=== PATIENT | male | born 1975 | race Caucasian/White ===

== ENCOUNTER 2017-09-12 17:27 | Emergency (ER) | payer OTHER ==
[2017-09-12] MEDS ORDERED: Octyl 2-Cyanoacrylate 1 Tube TOP ONE (17:59)
[2017-09-12] MEDS ORDERED: Diphtheria,Pertussis(Acell),Tetanus Vaccine 0.5 ML Syringe IM ONE (18:05)
--- NOTE | 2017-09-12 18:10 | EDM.PDOC ---
ED HPI GENERAL MEDICAL PROBLEM - General Chief Complaint: Upper Extremity Injury/Pain Stated Complaint: NEEDS STITCHES LT ARM Time Seen by Provider: 09/12/17 17:50 Source of Information: Reports: Patient History Limitations: Reports: No Limitations - History of Present Illness INITIAL COMMENTS - FREE TEXT/NARRATIVE: History of present illness: [41-year-old male comes in complaining of a laceration to the inside of the left bicep. 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 There is a superficial 1 cm laceration that does cut the dermis but does not penetrate the blood layer.] Review of systems: As per history of present illness and below otherwise all systems reviewed and negative. Past medical history: As per history of present illness and as reviewed below otherwise noncontributory. Surgical history: As per history of present illness and as reviewed below otherwise noncontributory. Social history: No reported history of drug or alcohol abuse. Family history: As per history of present illness and as reviewed below otherwise noncontributory. Physical exam: HEENT: Atraumatic, normocephalic, pupils reactive, negative for conjunctival pallor or scleral icterus, mucous membranes moist, throat clear, neck supple, nontender, trachea midline. Lungs: Clear to auscultation, breath sounds equal bilaterally, chest nontender. Heart: S1S2, regular, negative for clicks, rubs, or JVD. Abdomen: Soft, nondistended, nontender. Negative for masses or hepatosplenomegaly. Negative for costovertebral tenderness. Pelvis: Stable nontender. Genitourinary: Deferred. Rectal: Deferred. Extremities: 1 cm laceration to inner aspect of left bicep negative for cords or calf pain. Neurovascular unremarkable. Neuro: Awake, alert, oriented. Cranial nerves II through XII unremarkable. Cerebellum unremarkable. Motor and sensory unremarkable throughout. Exam nonfocal. Edges well approximated with Steri-Strips and then sealed with Dermabond Antibiotics prescribed / tetanus given Diagnostics: [] Therapeutics: [Tetanus] Impression: [1 cm laceration] Plan: [Follow-up with primary care] Definitive disposition and diagnosis as appropriate pending reevaluation and review of above. Left Upper Arm Pain Score (Numeric/FACES): 4 - Related Data Allergies Allergy/AdvReac Type Severity Reaction Status Date / Time No Known Allergies Allergy Verified 09/12/17 17:55 Home Meds: Home Meds Cephalexin [Keflex] 500 mg PO QID #40 capsule 09/12/17 [Rx] Past Medical History - Past Health History Medical/Surgical History: Denies Medical/Surgical History Social & Family History - Tobacco Use Smoking Status *Q: Current Every Day Smoker Years of Tobacco use: 10 Packs/Tins Daily: 0.5 - Caffeine Use Caffeine Use: Reports: Coffee, Energy Drinks, Tea - Recreational Drug Use Recreational Drug Use: No Review of Systems - Review of Systems Review Of Systems: See Below (See history of present illness) ED EXAM, GENERAL - Physical Exam Exam: See Below (See history of present illness) Course - Orders/Labs/Meds Meds: Medications Discontinued Medications Generic Name Dose Route Start Last Admin Trade Name Freq PRN Reason Stop Dose Admin Octyl Cyanoacrylate 1 applic 09/12/17 17:59 Dermabond Advance TOP 09/12/17 18:00 ONETIME ONE Departure - Departure Time of Disposition: 18:30 Disposition: Home, Self-Care 01 Condition: Good Clinical Impression: Laceration - Discharge Information Prescriptions: Cephalexin [Keflex] 500 mg PO QID #40 capsule Referrals: PCP,None [Primary Care Provider] - Additional Instructions: The following information is given to patients seen in the emergency department who are being discharged to home. This information is to outline your options for follow-up care. We provide all patients seen in our emergency department with a follow-up referral. The need for follow-up, as well as the timing and circumstances, are variable depending upon the specifics of your emergency department visit. If you don't have a primary care physician on staff, we will provide you with a referral. We always advise you to contact your personal physician following an emergency department visit to inform them of the circumstance of the visit and for follow-up with them and/or the need for any referrals to a consulting specialist. The emergency department will also refer you to a specialist when appropriate. This referral assures that you have the opportunity for follow-up care with a specialist. All of these measure are taken in an effort to provide you with optimal care, which includes your follow-up. Under all circumstances we always encourage you to contact your private physician who remains a resource for coordinating your care. When calling for follow-up care, please make the office aware that this follow-up is from your recent emergency room visit. If for any reason you are refused follow-up, please contact the [facility] Emergency Department at and asked to speak to the emergency department charge nurse. Keep area clean and dry Take Medicine as directed Follow-up with primary care as discussed Return to ED as needed as discussed
== END 2017-09-12 18:58 | disposition home or self-care (01) ==
LOC: MW.ED 17:27
DX: S46.222A Laceration of muscle, fascia and tendon of other parts of biceps, left arm, initial encounter (principal); Z23 Encounter for immunization; W26.8XXA Contact with other sharp object(s), not elsewhere classified, initial encounter
CPT/HCPCS: 12001; 90471; 90715; 99283; A9270